=== PATIENT | male | born 1945 | race Caucasian/White ===

== ENCOUNTER 2018-08-16 09:03 | Inpatient (IN) | payer MEDICARE, MEDICAID ==
[~2018-08-16] VITALS: Ht 193 cm; Wt 86.2 kg
[2018-08-16] VITALS (7 sets, daily range): BP systolic 113–169; BP diastolic 61–97; BMI 23.1
--- NOTE | ~2018-08-16 | MORECARE ---
CASE MANAGEMENT DISCHARGE SUMMARY PATIENT: MAGDY RANGEL JR UNIT: [id number] ADM DATE: 08/16/18 AGE: 73 : 44 SEX: M ROOM/BED: D.2240 AUTHOR: JUJU DELACRUZ PHYSICIAN: REFERRING PHYSICIAN: OZZY LOPEZ MD DATE OF SERVICE: 08/18/18 Discharge Plan Patient Name: MAGDY RANGEL Facility: [facility]:[place] : 1945 Planned Disposition: Inpatient Rehab Facility Anticipated Discharge Date: Discharge Date: Expected LOS: Initial Reviewer: [email or web address] Initial Review Date: 08/18/2018 Generated: 08/18/18 3:39 pm Comments DCP- Discharge Planning Updated by [email or web address]: Fabi Ford on 08/18/18 1:[address] Patient Name: MAGDY RANGEL Admission Status: ER Accout number: [id number] Admission Date: 08-16-2018 : 1945 Admission Diagnosis: Attending: OZZY JAIN Current LOS: 2 Anticipated DC Date: Planned Disposition: Inpatient Rehab Facility Primary Insurance: MEDICARE A & B Discharge Planning Comments: CM met with patient to discuss discharge planning, his daughter is in the room. He is hurting too much to answer questions, daughter answers questions for him. He lives alone. States sometimes his nephew will stay with him at night. States he is independent with all ADL's. States he no longer drives, family takes him where he needs to go. Daughter states he will need rehab prior to going home, would like to speak to her brother before deciding where. I discussed the availability of inpatient rehab and SNF. States they live in [place], so may want him to go to [place]. I will meet with them again tomorrow to see where they would like me to send the referral. CM will continue to follow and assist with discharge planning/needs. Pilot Instructor: Fabi Ford DCPIA - Discharge Planning Initial Assessment Updated by [email or web address]: Fabi Ford on 08/18/18 2:34 pm * Is the patient Alert and Oriented? No * How many steps to enter\exit or inside your home? 0/0 * PCP Dr. James Lawson in [place] * [facility] in [place] * Preadmission Environment Home Alone * ADLs Partial Dependent * Partial ADLs (Assistance needed) Ambulation * Equipment Bedside Commode Shower Chair Walker Wheelchair * List name and contact numbers for known caregivers / representatives who currently or will assist patient after discharge: Eleonora Bass - DTR - [phone] Edy Rangel son - [phone] * Verbal permission to speak to the caregivers and representatives has been obtained from the patient. Yes * Community resources currently utilized None * Additional services required to return to the preadmission environment? Yes * Can the patient safely return to the preadmission environment? No * Has this patient been hospitalized within the prior 30 days at any hospital? No Patient Name: MAGDY RANGEL Page [id number] at 1439 All edits/amendments must be made on the electronic document DICTATION DATE: 08/18/181437 AGRICULTURAL EQUIPMENT SALES ENGINEER: DULCE 08/18/181437 RPT#: [id number] DC DATE: STATUS: ADM IN [facility] [address] [place] [address] END OF REPORT
--- NOTE | ~2018-08-16 | MORECARE ---
CASE MANAGEMENT DISCHARGE SUMMARY PATIENT: MAGDY RANGEL JR UNIT: [id number] ADM DATE: 08/16/18 AGE: 73 : 44 SEX: M ROOM/BED: D.2240 AUTHOR: JUJU DELACRUZ PHYSICIAN: REFERRING PHYSICIAN: OZZY LOPEZ MD DATE OF SERVICE: 08/21/18 Discharge Plan Patient Name: MAGDY RANGEL Facility: [facility]:[place] : 1945 Planned Disposition: Inpatient Rehab Facility Anticipated Discharge Date: 08/21/18 Discharge Date: 08/21/2018 Expected LOS: 5 Initial Reviewer: [email or web address] Initial Review Date: 08/18/2018 Generated: 08/21/18 8:51 pm Comments DCP- Discharge Planning Updated by [email or web address]: Fabi Browningashley on 08/19/18 8:[address] I met with the son today per his request. He would like his father to go to inpatient rehab at [facility] on discharge from acute care. A rehab screen has been ordered. CM will continue to follow and assist with discharge planning/needs. DCP- Discharge Planning Updated by [email or web address]: Fabi Ford on 08/18/18 1:[address] Patient Name: MAGDY RANGEL Admission Status: ER Accout number: [id number] Admission Date: 08-16-2018 : 1945 Admission Diagnosis: Attending: OZZY JAIN Current LOS: 2 Anticipated DC Date: Planned Disposition: Inpatient Rehab Facility Primary Insurance: MEDICARE A & B Discharge Planning Comments: CM met with patient to discuss discharge planning, his daughter is in the room. He is hurting too much to answer questions, daughter answers questions for him. He lives alone. States sometimes his nephew will stay with him at night. States he is independent with all ADL's. States he no longer drives, family takes him where he needs to go. Daughter states he will need rehab prior to going home, would like to speak to her brother before deciding where. I discussed the availability of inpatient rehab and SNF. States they live in [place], so may want him to go to [place]. I will meet with them again tomorrow to see where they would like me to send the referral. CM will continue to follow and assist with discharge planning/needs. Well Service Derrick Worker: Fabi Liliana DCPIA - Discharge Planning Initial Assessment Updated by [email or web address]: Fabi Browningashley on 08/18/18 2:34 pm * Is the patient Alert and Oriented? No * How many steps to enter\exit or inside your home? 0/0 * PCP Dr. James Lawson in [place] * [facility] in [place] * Preadmission Environment Home Alone * ADLs Partial Dependent * Partial ADLs (Assistance needed) Ambulation * Equipment Bedside Commode Shower Chair Walker Wheelchair * List name and contact numbers for known caregivers / representatives who currently or will assist patient after discharge: Eleonora Bass DTR - [phone] Edy Rangel [facility] [phone] * Verbal permission to speak to the caregivers and representatives has been obtained from the patient. Yes * Community resources currently utilized None * Additional services required to return to the preadmission environment? Yes * Can the patient safely return to the preadmission environment? No * Has this patient been hospitalized within the prior 30 days at any hospital? No Last DP export: 08/19/18 8:27 Patient Name: MAGDY RANGEL Page [id number] at 1950 All edits/amendments must be made on the electronic document DICTATION DATE: 08/21/181950 WIRE MACHINE OPERATOR: DULCE 08/21/181950 RPT#: [id number] DC DATE:08/21/18 STATUS: DIS IN [facility] [address] [place] [address] END OF REPORT
--- NOTE | ~2018-08-16 | MORECARE ---
CASE MANAGEMENT DISCHARGE SUMMARY PATIENT: MAGDY RANGEL JR UNIT: [id number] ADM DATE: 08/16/18 AGE: 73 : 44 SEX: M ROOM/BED: D.2240 AUTHOR: JUJU DELACRUZ PHYSICIAN: REFERRING PHYSICIAN: OZZY LOPEZ MD DATE OF SERVICE: 08/24/18 Discharge Plan Patient Name: MAGDY RANGEL Facility: [facility]:[place] : 1945 Planned Disposition: Inpatient Rehab Facility Anticipated Discharge Date: 08/21/18 Discharge Date: 08/21/2018 Expected LOS: 5 Initial Reviewer: [email or web address] Initial Review Date: 08/18/2018 Generated: 08/24/18 9:50 am Comments DCP- Discharge Planning Updated by [email or web address]: Clara Tolentino on 08/21/18 6:[address] LATE ENTRY 1240 CM MET WITH THE PATIENT'S FAMILY AT THE BEDSIDE TO DISCUSS HOSPICE. THEY WOULD LIKE AN EVAL AND ADMIT. THEY WOULD LIKE INPATIENT HOSPICE AT [facility] THEY ARE FAMILIAR WITH [facility]. THEY CANNNOT MANAGE HIS CARE AT HOME. TC TO [facility] [phone]. REC CB FROM IDA. FAXED FACE SHEET AND MD ORDER TO [phone] DIRECTED. IDA IS TO CONTACT AKASH AT [phone]. CM CB TO UNIT BY DR NICOLAS. HE HAS SPOKEN WITH THE FAMILY AND WANTS TO CHANGE PLAN TO [facility] AT [facility] THEN TRANSFER IN A WEEK TO [place]. TC BACK TO [facility] AND SPOKE W/ IDA. TO ADVISE OF CHANGE TC TO [facility], [facility] CONTRACTED [facility] PROVIDER. REC CB FROM [place]. REFERRAL GIVEN. NURSE VISITED ONSITE THIS AFTERNOON. PATIENT ADMITTED TO [facility]. DCP- Discharge Planning Updated by [email or web address]: Fabi Ford on 08/19/18 8:[address] I met with the son today per his request. He would like his father to go to inpatient rehab at [facility] on discharge from acute care. A rehab screen has been ordered. CM will continue to follow and assist with discharge planning/needs. DCP- Discharge Planning Updated by [email or web address]: Fabi Ford on 08/18/18 1:[address] Patient Name: MAGDY RANGEL Admission Status: ER Accout number: [id number] Admission Date: 08-16-2018 : 1945 Admission Diagnosis: Attending: OZZY JAIN Current LOS: 2 Anticipated DC Date: Planned Disposition: Inpatient Rehab Facility Primary Insurance: MEDICARE A & B Discharge Planning Comments: CM met with patient to discuss discharge planning, his daughter is in the room. He is hurting too much to answer questions, daughter answers questions for him. He lives alone. States sometimes his nephew will stay with him at night. States he is independent with all ADL's. States he no longer drives, family takes him where he needs to go. Daughter states he will need rehab prior to going home, would like to speak to her brother before deciding where. I discussed the availability of inpatient rehab and SNF. States they live in [place], so may want him to go to [place]. I will meet with them again tomorrow to see where they would like me to send the referral. CM will continue to follow and assist with discharge planning/needs. Health And Physical Education Teacher: Fabi Browningashley DCPIA - Discharge Planning Initial Assessment Updated by [email or web address]: Fabi Ford on 08/18/18 2:34 pm * Is the patient Alert and Oriented? No * How many steps to enter\exit or inside your home? 0/0 * PCP Dr. James Lawson in [place] * [facility] in [place] * Preadmission Environment Home Alone * ADLs Partial Dependent * Partial ADLs (Assistance needed) Ambulation * Equipment Bedside Commode Shower Chair Walker Wheelchair * List name and contact numbers for known caregivers / representatives who currently or will assist patient after discharge: Akash Bass - DTR - [phone] Edy Rangel son - [phone] * Verbal permission to speak to the caregivers and representatives has been obtained from the patient. Yes * Community resources currently utilized None * Additional services required to return to the preadmission environment? Yes * Can the patient safely return to the preadmission environment? No * Has this patient been hospitalized within the prior 30 days at any hospital? No Last DP export: 08/21/18 6:58 Patient Name: MAGDY RANGEL Page 97199 at 0850 All edits/amendments must be made on the electronic document DICTATION DATE: 08/24/18849 COMMUNITY AIDE: DULCE 08/24/18849 RPT#: [id number] DC DATE:08/21/18 STATUS: DIS IN [facility] [address] [place] [address] END OF REPORT
--- NOTE | ~2018-08-16 | MORECARE ---
CASE MANAGEMENT DISCHARGE SUMMARY PATIENT: MAGDY RANGEL JR UNIT: [id number] ADM DATE: 08/16/18 AGE: 73 : 44 SEX: M ROOM/BED: D.2240 AUTHOR: JUJU DELACRUZ PHYSICIAN: REFERRING PHYSICIAN: OZZY LOPEZ MD DATE OF SERVICE: 08/21/18 Discharge Plan Patient Name: MAGDY RANGEL Facility: [facility]:[place] : 1945 Planned Disposition: Inpatient Rehab Facility Anticipated Discharge Date: 08/21/18 Discharge Date: 08/21/2018 Expected LOS: 5 Initial Reviewer: [email or web address] Initial Review Date: 08/18/2018 Generated: 08/21/18 8:58 pm Comments DCP- Discharge Planning Updated by [email or web address]: Clara Tolentino on 08/21/18 6:[address] LATE ENTRY 1240 CM MET WITH THE PATIENT'S FAMILY AT THE BEDSIDE TO DISCUSS HOSPICE. THEY WOULD LIKE AN EVAL AND ADMIT. THEY WOULD LIKE INPATIENT HOSPICE AT [facility] THEY ARE FAMILIAR WITH [facility]. THEY CANNNOT MANAGE HIS CARE AT HOME. TC TO [facility] [phone]. REC CB FROM IDA. FAXED FACE SHEET AND MD ORDER TO [phone] DIRECTED. IDA IS TO CONTACT AKASH AT [phone]. CM CB TO UNIT BY DR NICOLAS. HE HAS SPOKEN WITH THE FAMILY AND WANTS TO CHANGE PLAN TO [facility] AT [facility] THEN TRANSFER IN A WEEK TO [place]. TC BACK TO [facility] AND SPOKE W/ IDA. TO ADVISE OF CHANGE TC TO [facility], [facility] CONTRACTED [facility] PROVIDER. REC CB FROM [place]. REFERRAL GIVEN. NURSE VISITED ONSITE THIS AFTERNOON. PATIENT ADMITTED TO [facility]. DCP- Discharge Planning Updated by [email or web address]: Fabi Ford on 08/19/18 8:[address] I met with the son today per his request. He would like his father to go to inpatient rehab at [facility] on discharge from acute care. A rehab screen has been ordered. CM will continue to follow and assist with discharge planning/needs. DCP- Discharge Planning Updated by [email or web address]: Fabi Ford on 08/18/18 1:[address] Patient Name: MAGDY RANGEL Admission Status: ER Accout number: [id number] Admission Date: 08-16-2018 : 1945 Admission Diagnosis: Attending: OZZY JAIN Current LOS: 2 Anticipated DC Date: Planned Disposition: Inpatient Rehab Facility Primary Insurance: MEDICARE A & B Discharge Planning Comments: CM met with patient to discuss discharge planning, his daughter is in the room. He is hurting too much to answer questions, daughter answers questions for him. He lives alone. States sometimes his nephew will stay with him at night. States he is independent with all ADL's. States he no longer drives, family takes him where he needs to go. Daughter states he will need rehab prior to going home, would like to speak to her brother before deciding where. I discussed the availability of inpatient rehab and SNF. States they live in [place], so may want him to go to [place]. I will meet with them again tomorrow to see where they would like me to send the referral. CM will continue to follow and assist with discharge planning/needs. Animal Care Specialist: Fabi Browningashley DCPIA - Discharge Planning Initial Assessment Updated by [email or web address]: Fabi Ford on 08/18/18 2:34 pm * Is the patient Alert and Oriented? No * How many steps to enter\exit or inside your home? 0/0 * PCP Dr. James Lawson in [place] * [facility] in [place] * Preadmission Environment Home Alone * ADLs Partial Dependent * Partial ADLs (Assistance needed) Ambulation * Equipment Bedside Commode Shower Chair Walker Wheelchair * List name and contact numbers for known caregivers / representatives who currently or will assist patient after discharge: Akash Bass - DTR - [phone] Edy Rangel - son - [phone] * Verbal permission to speak to the caregivers and representatives has been obtained from the patient. Yes * Community resources currently utilized None * Additional services required to return to the preadmission environment? Yes * Can the patient safely return to the preadmission environment? No * Has this patient been hospitalized within the prior 30 days at any hospital? No Last DP export: 08/21/18 6:51 Patient Name: MAGDY RANGEL Page 01856 at 1958 All edits/amendments must be made on the electronic document DICTATION DATE: 08/21/181956 CNC MACHINE SETTER: DULCE 08/21/181956 RPT#: [id number] DC DATE:08/21/18 [facility] [address] [place] [address] END OF REPORT
--- NOTE | ~2018-08-16 | OP ---
PATIENT NAME: MAGDY RANGEL JR MEDICAL RECORD: [id number] :[birth year] LOCATION:D[id number] ADMISSION DATE:08/16/18 SURGEON: JENSEN ADRIAN MD DATE OF OPERATION: 08/17/2018 PROCEDURES: 1. PTCA, LAD. 2. Left heart catheterization. 3. Selective coronary angiography. INDICATION: Chest pain compatible with angina, coronary artery disease, and previous cardiac stenting. PROCEDURE IN DETAIL: After informed consent was obtained and after a detailed description of the risks, benefits as well as alternative therapies, the patient elected to proceed with angiogram and angioplasty. The right radial area was prepped and draped in normal sterile fashion. Right radial artery was cannulated via modified Seldinger technique with placement of 6-Czech sheath. All catheters exchanged through this sheath. 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 SELECTIVE CORONARY ANGIOGRAPHY: 1. Left main is with no significant angiographic disease. 2. Left anterior descending has previously placed stents. There is 95% in-stent restenosis in the proximal vessel. 3. The left circumflex has mild irregularities, but no flow-limiting stenosis. 4. The right coronary has previously placed stents, these are widely patent with no significant restenosis. No disease elsewise throughout the RCA or its branches. PTCA of the LAD: The in-stent restenosis was addressed with high pressure PTCA with a 3.5 balloon taken to 21 atmospheres. Result was 0% residual stenosis. OVERALL IMPRESSION: Successful percutaneous transluminal coronary angioplasty for in-stent restenosis of the LAD going from 95% initial stenosis to 0% residual. TRANSINT:[id number] Voice Confirmation ID: [id number] DOCUMENT ID: [id number] JENSEN ADRIAN MD at 1228 CC: [id number] DICTATION DATE: 08/17/18 1623 DEMOLITION WORKER: 08/17/18 1848 ADM IN [facility] [id number] [place] [address]
--- NOTE | ~2018-08-16 | MORECARE ---
CASE MANAGEMENT DISCHARGE SUMMARY PATIENT: MAGDY RANGEL JR UNIT: [id number] ADM DATE: 08/16/18 AGE: 73 : 44 SEX: M ROOM/BED: D.2240 AUTHOR: JUJU DELACRUZ PHYSICIAN: REFERRING PHYSICIAN: OZZY LOPEZ MD DATE OF SERVICE: 08/19/18 Discharge Plan Patient Name: MAGDY RANGEL Facility: [facility]:[place] : 1945 Planned Disposition: Inpatient Rehab Facility Anticipated Discharge Date: Discharge Date: Expected LOS: Initial Reviewer: [email or web address] Initial Review Date: 08/18/2018 Generated: 08/19/18 10:27 am Comments DCP- Discharge Planning Updated by [email or web address]: Fabi Liliana on 08/19/18 8:[address] I met with the son today per his request. He would like his father to go to inpatient rehab at [facility] on discharge from acute care. A rehab screen has been ordered. CM will continue to follow and assist with discharge planning/needs. DCP- Discharge Planning Updated by [email or web address]: Fabi Browningashley on 08/18/18 1:[address] Patient Name: MAGDY RANGEL Admission Status: ER Accout number: [id number] Admission Date: 08-16-2018 : 1945 Admission Diagnosis: Attending: OZZY JAIN Current LOS: 2 Anticipated DC Date: Planned Disposition: Inpatient Rehab Facility Primary Insurance: MEDICARE A & B Discharge Planning Comments: CM met with patient to discuss discharge planning, his daughter is in the room. He is hurting too much to answer questions, daughter answers questions for him. He lives alone. States sometimes his nephew will stay with him at night. States he is independent with all ADL's. States he no longer drives, family takes him where he needs to go. Daughter states he will need rehab prior to going home, would like to speak to her brother before deciding where. I discussed the availability of inpatient rehab and SNF. States they live in [place], so may want him to go to [place]. I will meet with them again tomorrow to see where they would like me to send the referral. CM will continue to follow and assist with discharge planning/needs. Dry Press Operator: Fabi Liliana DCPIA - Discharge Planning Initial Assessment Updated by [email or web address]: Fabi Liliana on 08/18/18 2:34 pm * Is the patient Alert and Oriented? No * How many steps to enter\exit or inside your home? 0/0 * PCP Dr. James Lawson in [place] * [facility] in [place] * Preadmission Environment Home Alone * ADLs Partial Dependent * Partial ADLs (Assistance needed) Ambulation * Equipment Bedside Commode Shower Chair Walker Wheelchair * List name and contact numbers for known caregivers / representatives who currently or will assist patient after discharge: Eleonora Bass - DTR - [phone] Edy Rangel [facility] - [phone] * Verbal permission to speak to the caregivers and representatives has been obtained from the patient. Yes * Community resources currently utilized None * Additional services required to return to the preadmission environment? Yes * Can the patient safely return to the preadmission environment? No * Has this patient been hospitalized within the prior 30 days at any hospital? No Last DP export: 08/18/18 1:39 Patient Name: MAGDY RANGEL Page [id number] at 0927 All edits/amendments must be made on the electronic document DICTATION DATE: 08/19/18925 WEB DATABASE DEVELOPER: DULCE 08/19/18925 RPT#: [id number] DC DATE: STATUS: ADM IN [facility] [address] [place] [address] END OF REPORT
--- NOTE | ~2018-08-16 | HEMODYNAMI ---
PATIENT:MAGDY RANGEL JR MEDICAL RECORD: [id number] : 43 LOCATION:D [id number] ADMISSION DATE: 08/16/18 Generatedon:08/17/201816:24 Patient name: MAGDY RANGEL Patient #: [id number] SSN: : 1945 Date of study: 08/17/2018 Page: Of Hemodynamic Procedure Report Patient Data Patient Demographics Procedure consent was obtained First Name: MAGDY Gender: Male Last Name: JUAN CARLOS Suffix: Jr Cherry Initial: HARMEET : 1945 Patient #: [id number] Age: 73 year(s) Race: Unknown Additional ID: [id number] Contact details Address: [address] [place] [address] State: [place] City: [place] Zip code: [address] Admission Admission Data Admission Date: 08/16/2018 Admission Time: 10:48 Room #: D.2240 Procedure Procedure Types Cath Procedure Diagnostic Procedure LHC LHC w/Coronaries PCI Procedure PTCA PTCA Initial Procedure Description Procedure Date Procedure Date: 08/17/2018 Procedure Start Time: 16:08 Procedure End Time: 16:24 Procedure Staff Name Function Ton Rendon MD Performing Physician Milady Thurman RT Monitor Camille Vogel RN Nurse Alexey Nieves RT Scrub Jamar Gaytan MD Additional personnel Procedure Data Cath Procedure Fluoroscopy Diagnostic fluoroscopy Total fluoroscopy Time: 5.6 time: 5.6 min min Diagnostic fluoroscopy Total fluoroscopy dose: 601 dose: 601 mGy mGy Contrast Material Contrast Material Type Amount (ml) Isovue 300 59 Entry Location Entry Primary Successful Side Size Upsize Upsize Entry Closure Succes sful Closure Location (Fr) 1 (Fr) 2 (Fr) Remarks Device Remarks Radial Right 6 Fr Exoseal artery Short Estimated blood loss: 10 ml Diagnostic catheters Device Type Used For End Catheter Placement DIAGNOSTIC Raven 110cm 5 LV Angiography Fr catheter ([id number]) DIAGNOSTIC Raven 110cm 5 Right Coronary Fr catheter ([id number]) Angiography Procedure Complications No complications Procedure Medications Medication Administration Route Dosage 0.9% NaCl I.V. 100 ml/hr Oxygen etCO2 Nasal cannula 2 l/min Lidocaine 2% added to field 20 Heparin Flush Bag added to field 2 bags (1000units/500ml NS) Refer to Anesthesia Notes for Sedation Medications Heparin Bolus I.V. 4000 units Plavix P.O. 75 mg Hemodynamics Rest Heart Rate: 96 (bpm) Snapshots Pre Cath Intra NCS Post Cath Vital Signs Time Heart Resp SPO2 etCO2 NIBP (mmHg) Rhythm Pain Sedation Rate (ipm) (%) (mmHg) Status Level (bpm) 15:28:00 94 12 99 8.2 128/56(100) NSR 0 (11) 10(A) , No pain 15:32:33 87 16 97 16.5 130/70(105) NSR 0 (11) 5(A) , No pain 15:36:45 100 18 98 23.3 112/65(97) NSR 0 (11) 5(A) , No pain 15:40:51 90 17 99 22.6 87/57(75) NSR 0 (11) 5(A) , No pain 15:44:54 85 15 99 23 79/51(62) NSR 0 (11) 5(A) , No pain 15:48:56 93 16 98 22.6 74/49(60) NSR 0 (11) 5(A) , No pain 15:52:56 85 16 97 20.3 71/48(55) NSR 0 (11) 5(A) , No pain 15:56:55 83 17 96 23.7 67/46(57) NSR 0 (11) 5(A) , No pain 16:00:53 92 15 96 21.8 65/44(51) NSR 0 (11) 5(A) , No pain 16:04:51 82 18 96 29.8 66/46(52) NSR 0 (11) 5(A) , No pain 16:08:50 92 20 96 15.8 67/44(56) NSR 0 (11) 5(A) , No pain 16:12:50 81 14 98 22.6 58/41(52) NSR 0 (11) 5(A) , No pain 16:14:33 90 16 96 22.6 57/42(52) NSR 0 (11) 5(A) , No pain 16:18:10 81 15 98 26.3 76/47(62) NSR 0 (11) 5(A) , No pain 16:22:09 81 15 97 25.6 79/50(59) NSR 0 (11) 10(A) , No pain Medications Time Medication Route Dose Verified Delivered Reason Notes Effectiveness by by 15:28:17 0.9% NaCl I.V. 100 Ton Camille used for ml/hr Julieta Vogel seamless tube roller 15:28:25 Oxygen etCO2 2 Ton Camille used for Nasal l/min Julieta Vogel procedure cannula RN 15:28:30 Lidocaine 2% added 20ml Ton Ton for local to vial Julieta Rendon MD anesthetic field 15:28:35 Heparin Flush added 2 Ton Ton used for Bag to bags Julieta Rendon MD procedure (1000units/500ml field NS) 15:28:53 Refer to [facility] Anesthesia Notes Julieta Rendon MD for Sedation Medications 16:17:21 Heparin Bolus I.V. 4000 Ton Camille for verif ied units Julieta Vogel anticoagulation with Dr. SAM Rendon 16:22:50 Plavix P.O. 75 mg Ton Berryyla for Julieta Vogel antiplatelet RN therapy Procedure Log Time Note 15:10:14 Milady Counts RT(R) sent for patient. Start room use. 15:10:15 Time tracking: Regular hours (M-F 7:00 - 5:00) 15:10:19 Plan of Care:Hemodynamics will remain stable., Cardiac rhythm will remain stable., Comfort level will be maintained., Respiratory function will remain adequate., Patient/ family verbilizes understanding of procedure., Procedure tolerated without complication., Recovers from procedure without complications.. 15:21:09 Jamar Gaytan MD present and monitoring patient for TIVA. 15:21:34 Patient received from Med/Surg to CCL 1 Alert and oriented. Tansferred to table in Supine position. 15:21:35 Warm blankets applied, and felix hugger turned on for patient comfort. 15:21:36 Correct patient and procedure confirmed by team. 15:21:38 Signed procedure consent form obtained from patient. 15:21:39 ECG and BP/O2 sat monitors applied to patient. 15:21:41 Pre-procedure instructions explained to patient. 15:21:42 Pre-op teaching completed and patient verbalized understanding. 15:22:02 H&P Date Dictated: 08/16/2018 Within 30 days and on chart.. 15:26:54 Vital chart was started 15:27:12 Baseline sample Acquired. 15:28:17 0.9% NaCl 100 ml/hr I.V. was administered by Camille Vogel RN; used for procedure; 15:28:25 Oxygen 2 l/min etCO2 Nasal cannula was administered by Camille Vogel RN; used for procedure; 15:28:30 Lidocaine 2% 20ml vial added to field was administered by Ton Rendon MD; for local anesthetic; 15:28:35 Heparin Flush Bag (1000units/500ml NS) 2 bags added to field was administered by Ton Rendon MD; used for procedure; 15:28:53 Refer to Anesthesia Notes for Sedation Medications was administered by Ton Rendon MD; ; 15:42:33 Rhythm: sinus rhythm 15:42:34 Full Disclosure recording started 15:42:38 Family in patients room. 15:42:39 Patient NPO since Midnight. 15:42:46 Is the patient allergic to Iodine/contrast media? No. 15:42:50 Is patient on blood thinner?Yes 15:42:52 ACC The patient was administered the following blood thiners within the last 24 hours: ACCPlavix 15:42:55 Patient diabetic? Yes. 15:44:42 If diabetic: On Metformin? No 15:44:58 SEE ANESTHESIA NOTES FOR PRE ASSESSMENT 15:45:11 Pre procedure: right dorsailis pedis pulse Inaccessible 15:45:14 Pre procedure: left dorsailis pedis pulse Inaccessible 15:45:50 BOTH LOWER LEGS AND FEET HEAVILY BANDAGED DUE TO NONE HEALING ULCERS. 15:45:57 Patient pain scale 10/10 BACK. 15:46:06 IV patent on arrival in left wrist with 0.9% NaCl at [facility]. 15:46:08 Lab results completed and on chart. 15:46:11 Right Radial & Right Groin area was prepped with chlora-prep and draped in sterile fashion 15:46:12 Alarms reviewed by R. N. 15:46:13 Sharps counted by scrub and verified by R.N. 15:48:02 Use device set Radial Dx or PCI 15:48:03 ACIST Syringe (21799) opened to sterile field. 15:48:03 Medline Cath Pack ([id number]) opened to sterile field. 15:48:04 Bag Decanter (2002S) opened to sterile field. 15:48:04 DIAGNOSTIC WIRE .035 260cm J wire (580986) opened to sterile field. 15:48:05 ACIST Hand Control (62368) opened to sterile field. 15:48:05 ACIST Manifold (91087) opened to sterile field. 15:48:06 Tegaderm 4 x 4 (1626W) opened to sterile field. 15:48:06 MBrace Wrist Support ([id number]) opened to sterile field. 15:48:07 SHEATH 6FR Slender (26-3327) opened to sterile field. 15:48:43 Zero performed for pressure channel P1 15:49:03 Zero performed for pressure channel P1 16:05:55 Final Timeout: patient, procedure, and site verified with staff and physician. All members of the team are in agreement. 16:06:00 Right Radial site verified by team. 16:06:02 Physical assessment completed. ASA score P 2 - A patient with mild systemic disease as per Ton Rendon MD. 16:06:10 Sedation plan: TIVA Medication:Propofol 16:08:39 Procedure started. 16:08:43 Local anesthetic to right femoral artery with Lidocaine 2% by Ton Rendon MD.INITIAL ACCESS ONLY 16:08:57 A 6 Fr Short sheath was inserted into the Right Radial artery 16:09:19 A DIAGNOSTIC Raven 110cm 5 Fr catheter (514863) was advanced over the wire and used for LV Angiography. UNABLE TO CROSS VALVE 16:11:27 Attempted to notify family per Milady Thurman RT(R). No family available. 16:12:42 A DIAGNOSTIC Raven 110cm 5 Fr catheter ([id number]) was advanced over the wire and used for Right Coronary Angiography. 16:12:54 Catheter removed. 16:13:18 GUIDE 6FR XB 3.5 catheter ([id number]) opened to sterile field. 16:13:34 6 Fr XB 3.5 guide catheter was inserted over the wire 16:14:51 LCA angiography performed. 16:16:53 CHOICE PT ES wire advanced. 16:17:21 Heparin Bolus 4000 units I.V. was administered by Camille Vogel RN; for anticoagulation; verified with Dr. Rendon 16:18:01 Inflate balloon Inflation number: 1 A EUPHORA 3.5 x 15 Balloon ([id number]) was prepped and advanced across the Prox LAD, then inflated to 21 TRAM for 0:09 (min:sec). 16:18:34 Inflation number: 2 The EUPHORA 3.5 x 15 Balloon ([id number]) was reinflated across the Prox LAD, to 21 TRAM for 0:25 (min:sec). 16:18:40 Inflation number: 3 The EUPHORA 3.5 x 15 Balloon ([id number]) was reinflated across the Prox LAD, to 21 TRAM for 0:04 (min:sec). 16:18:56 Inflation number: 4 The EUPHORA 3.5 x 15 Balloon ([id number]) was reinflated across the Prox LAD, to 21 TRAM for 0:04 (min:sec). 16:19:[address] [facility] PCI 16:19:06 INFLATOR Merit BasixCompak ([id number]) opened to sterile field. 16:19:09 CHOICE PT Extra Support 182cm wire ([id number]) opened to sterile field. 16:19:21 Balloon removed over the wire. 16:19:22 Wire removed. 16:19:22 Guide catheter removed. 16:19:29 Sheath removed intact; hemostasis achieved with Exoseal to the Right Radial artery. 16:19:57 Procedure ended.(Physican Out) 16:20:08 Fluoroscopy time 05.60 minutes. 16:20:16 Fluoroscopy dose: 601 mGy 16:20:16 Flurop Dose total: 601 16:20:27 Contrast amount:Isovue 300 59ml. 16:20:29 Sharps counted by scrub and verified by R.N. 16:20:31 TR band inflated with 12cc of air. 16:20:32 Insertion/operative site no bleeding no hematoma. 16:20:39 Post right radial artery:stable, clean and dry 16:20:41 Post Procedure Pulses reassessed and unchanged 16:20:44 Post-procedure physical assessment completed. ASA score P 2 - A patient with mild systemic disease as per Ton Rendon MD. 16:20:53 Post procedure rhythm: unchanged. 16:21:00 Estimated blood loss: 10 ml 16:21:01 Post procedure instruction explained to patient.Patient verbalizes understanding. 16:21:01 Patient needs reinforcement of post procedure teaching. 16:21:06 Procedure Complication : No complications 16:21:09 See physician's report for complete and final results. 16:21:26 Procedure type changed to Cath procedure, Diagnostic procedure, LHC, LHC w/Coronaries, PCI procedure, PTCA, PTCA Initial 16:22:00 TR BAND Standard ([id number]) opened to sterile field. 16:22:28 Procedure and supply charges have been captured, reviewed, submitted and are correct. 16:22:50 Plavix 75 mg P.O. was administered by Camille Vogel RN; for antiplatelet therapy; 16:24:09 Report given to Pre/Post Procedure Room. 16:24:28 Patient transfered to Pre/Post Procedure Room with Bed. 16:24:32 Procedure ended. 16:24:32 Full Disclosure recording stopped 16:24:35 Vital chart was stopped 16:24:37 End room use (Document Last) Intervention Summary Intervention Notes Time ActionType Lesion and Equipment Action# Pressure Duration Attributes Used 16:18:01 Inflate Prox LAD EUPHORA 1 21 00:09 balloon 3.5 x 15 Balloon ([id number]) 16:18:34 Reinflate Prox LAD EUPHORA 2 21 00:25 balloon 3.5 x 15 Balloon ([id number]) 16:18:40 Reinflate Prox LAD EUPHORA 3 21 00:04 balloon 3.5 x 15 Balloon ([id number]) 16:18:56 Reinflate Prox LAD EUPHORA 4 21 00:04 balloon 3.5 x 15 Balloon ([id number]) Device Usage Item Name Manufacture Quantity Catalog Number Hospital Part Current Minim al Lot# / Charge Number Stock Stock Serial# Code ACIST Acist 1 14081 504018 263343 671020 20 DigitalTangible (83841) Uzabase Inc Medline Medline 1 [id number] 05823 236563 5 Cath Pack ([id number]) Bag Microtek 1 057273 32959 775292 5 DecVivaty Medical Inc. () DIAGNOSTIC [facility] 1 690875 349521 285742 287768 30 WIRE .035 260cm J wire (831250) ACIST Hand Acist 1 84037 242377 685510 607191 5 Control Medical (60532) Systems Inc ACIST Acist 1 83492 074995 444292 595966 5 Manifold Medical (15533) Systems Inc Tegaderm 4 3M 1 1626W 934590 028590 192718 5 x 4 (1626W) MBrace Advanced 1 140-0250-00 298145 33393 548633 5 Wrist Vascular Support Dynamics ([id number]) SHEATH 6FR Terumo 1 [id number] 911351 344157 370767 5 Slender (80-1060) DIAGNOSTIC Terumo 1 40-9283 157387 102648 033564 5 Raven 110cm 5 Fr catheter (253241) GUIDE 6FR Cardinal 1 [id number] 006242 202326 940721 2 XB 3.5 Health catheter (15669821) EUPHORA 3.5 Medtronic 1 [id number] 089454 428250 372424 5 [id number] x 15 Balloon ([id number]) INFLATOR Merit 1 TU7941 825436 945040 194496 15 Merit Medical BasixCompak (KS2397) CHOICE PT [place] 1 [id number] 150395 528104 602402 5 Extra Scientific Support 182cm wire ([id number]) TR BAND Terumo 1 [id number] 291801 752970 335039 40 Standard ([id number]) Signature Audit [place] Stage Time Signature Unsigned Intra-Procedure 08/17/2018 Milady 4:24:47 PM Counts RT(R) Signatures Monitor : Milady Signature : Counts RT Date : Time : [facility] [address] [facility] [place] [address]
[~2018-08-16 09:03] MED LIST: ALTACE10 MG PO; BENICAR HCT 40-1 TA1 PO; DIABETA2.5 MG PO; ECOTRIN81 MG PO; ENDOCET 10-3251 TAB PO; FLOMAX0.4 MG PO; K-TAB10 MEQ PO; LASIX40 MG PO; NITROSTAT0.4 MG SL; NORVASC5 MG PO; PLAVIX75 MG PO; PROTONIX40 MG PO; RANEXA500 MG PO; ZOCOR40 MG PO
[2018-08-16 09:56] LABS: BASOPHILS 0.1 % (0-2); EOSINOPHILS 0.5 % (0-7); HEMATOCRIT 42.9 % (42.0-54.0); HEMOGLOBIN 13.9 g/dL (13.5-17.5); IMMATURE GRANULOCYTES 1.3 % (0-5); LYMPHOCYTES 8.5 % (15-50); MCH 32.3 pg (26.0-34.0); MCHC 32.4 g/dL (31.0-37.0); MCV 99.5 fL (80.0-100.0); MEAN PLATELET VOLUME 10.3 fL (7.4-10.4); MONOCYTES 9.2 % (2-11); NEUTROPHILS 80.4 % (40-80); RBC 4.31 10x6/uL (4.20-6.10); RDW 13.6 % (11.5-14.5); WBC 11.1 10x3/uL (4.8-10.8)
[2018-08-16 10:00] LABS: PLATELET COUNT 143 10x3/uL (130-400)
[2018-08-16 10:06] LABS: APTT 28.4 SECONDS (22.8-39.4); INR 1.08 (0.85-1.17); PROTIME 13.5 SECONDS (11.6-15.0)
[2018-08-16 10:14] LABS: ALBUMIN 3.4 g/dL (3.4-5.0); ALKALINE PHOSPHATASE 112 U/L (46-116); ALT (SGPT) 36 U/L (10-68); BILIRUBIN - TOTAL 0.44 mg/dL (0.2-1.3); CALC OSMOLALITY 280 mosm/kg (275-300); CALCIUM 8.7 mg/dL (8.5-10.1); CARBON DIOXIDE 29.2 mmol/L (21.0-32.0); CHLORIDE - SERUM 103 mmol/L (98-107); CREATININE - SERUM 0.8 mg/dL (0.6-1.3); GLUCOSE 84 mg/dL (74-106); POTASSIUM - SERUM 4.1 mmol/L (3.5-5.1); PROTEIN - SERUM 6.8 g/dL (6.4-8.2); SODIUM 141 mmol/L (136-145); UREA NITROGEN 16 mg/dL (7-18); eGFR NON AFRICAN AMERICAN > 90 mL/min (90-120)
[2018-08-16 10:25] LABS: AMYLASE - SERUM 27 U/L (25-115); CKMB 3.4 U/L (0.0-3.6); CREATINE KINASE 59 UL (21-232); LIPASE 66 U/L (73-393); MAGNESIUM - SERUM 1.9 mg/dL (1.8-2.4); TROPONIN-I 0.036 ng/mL (0.000-0.060)
[2018-08-16 12:49] LABS: ERYTHROCYTE SEDIMENTATION RATE 4 mm/hr (0-20)
[2018-08-16] MEDS ORDERED: L-ARGININE500 MG PO (14:23)
[2018-08-16] MEDS ORDERED: FLUTICASONE PRO16 GM NASAL (14:25)
[2018-08-16] MEDS ORDERED: VISTARIL25 MG PO (14:28)
[2018-08-16] MEDS ORDERED: NEURONTIN 300300 MG PO (14:30)
[2018-08-16] MEDS ORDERED: DIPYRIDAMOLE75 MG PO (14:32)
[2018-08-16] MEDS ORDERED: COLACE100 MG PO (14:33)
[2018-08-16] MEDS ORDERED: IBUPROFEN800 MG PO (14:34)
[2018-08-16 17:31] LABS: BASOPHILS 0.1 % (0-2); EOSINOPHILS 1.6 % (0-7); HEMATOCRIT 42.4 % (42.0-54.0); HEMOGLOBIN 13.7 g/dL (13.5-17.5); IMMATURE GRANULOCYTES 1.8 % (0-5); LYMPHOCYTES 15.3 % (15-50); MCH 32.3 pg (26.0-34.0); MCHC 32.3 g/dL (31.0-37.0); MEAN PLATELET VOLUME 10.7 fL (7.4-10.4); MONOCYTES 8.4 % (2-11); NEUTROPHILS 72.8 % (40-80); RBC 4.24 10x6/uL (4.20-6.10); RDW 13.7 % (11.5-14.5)
[2018-08-16 17:36] LABS: PLATELET COUNT 109 10x3/uL (130-400); WBC 7.7 10x3/uL (4.8-10.8)
[2018-08-16 17:55] LABS: CALC OSMOLALITY 285 mosm/kg (275-300); CALCIUM 8.4 mg/dL (8.5-10.1); CARBON DIOXIDE 28.8 mmol/L (21.0-32.0); CHLORIDE - SERUM 105 mmol/L (98-107); CREATINE KINASE 47 UL (21-232); CREATININE - SERUM 0.8 mg/dL (0.6-1.3); GLUCOSE 98 mg/dL (74-106); POTASSIUM - SERUM 3.8 mmol/L (3.5-5.1); SODIUM 143 mmol/L (136-145); UREA NITROGEN 15 mg/dL (7-18); eGFR NON AFRICAN AMERICAN > 90 mL/min (90-120)
[2018-08-16 22:21] LABS: CKMB 2.3 U/L (0.0-3.6); CREATINE KINASE 47 UL (21-232)
[2018-08-17 04:34] LABS: BASOPHILS 0.1 % (0-2); EOSINOPHILS 1.3 % (0-7); HEMATOCRIT 40.6 % (42.0-54.0); HEMOGLOBIN 13.3 g/dL (13.5-17.5); IMMATURE GRANULOCYTES 1.9 % (0-5); LYMPHOCYTES 12.2 % (15-50); MCH 32.6 pg (26.0-34.0); MCHC 32.8 g/dL (31.0-37.0); MCV 99.5 fL (80.0-100.0); MEAN PLATELET VOLUME 10.6 fL (7.4-10.4); MONOCYTES 10.3 % (2-11); NEUTROPHILS 74.2 % (40-80); PLATELET COUNT 119 10x3/uL (130-400); RBC 4.08 10x6/uL (4.20-6.10); RDW 13.8 % (11.5-14.5); WBC 7.5 10x3/uL (4.8-10.8)
[2018-08-17 05:01] VITALS: BP 138/66
[2018-08-17 05:10] LABS: ALBUMIN 2.7 g/dL (3.4-5.0); ALKALINE PHOSPHATASE 95 U/L (46-116); ALT (SGPT) 31 U/L (10-68); BILIRUBIN - TOTAL 0.57 mg/dL (0.2-1.3); CALC OSMOLALITY 282 mosm/kg (275-300); CALCIUM 7.9 mg/dL (8.5-10.1); CARBON DIOXIDE 28.5 mmol/L (21.0-32.0); CHLORIDE - SERUM 104 mmol/L (98-107); CKMB 1.6 U/L (0.0-3.6); CREATINE KINASE 52 UL (21-232); CREATININE - SERUM 0.9 mg/dL (0.6-1.3); GLUCOSE 97 mg/dL (74-106); POTASSIUM - SERUM 3.3 mmol/L (3.5-5.1); PROTEIN - SERUM 5.8 g/dL (6.4-8.2); SODIUM 142 mmol/L (136-145); TROPONIN-I 0.048 ng/mL (0.000-0.060); UREA NITROGEN 13 mg/dL (7-18); eGFR NON AFRICAN AMERICAN 88 mL/min (90-120)
[2018-08-17 09:21] VITALS: BP 123/57
[2018-08-17 10:02] VITALS: BP 112/49
[2018-08-17 12:03] VITALS: BP 106/74
[2018-08-17 14:00] VITALS: Ht 193 cm; Wt 86.2 kg
[2018-08-17 21:01] VITALS: BP 130/88
[2018-08-18 05:58] VITALS: BP 112/60
[2018-08-18 06:21] LABS: BASOPHILS 0.2 % (0-2); EOSINOPHILS 1.2 % (0-7); HEMATOCRIT 39.8 % (42.0-54.0); HEMOGLOBIN 12.8 g/dL (13.5-17.5); IMMATURE GRANULOCYTES 1.9 % (0-5); MCH 31.8 pg (26.0-34.0); MCHC 32.2 g/dL (31.0-37.0); MCV 98.8 fL (80.0-100.0); MEAN PLATELET VOLUME 10.3 fL (7.4-10.4); MONOCYTES 12.5 % (2-11); NEUTROPHILS 73.2 % (40-80); PLATELET COUNT 107 10x3/uL (130-400); RBC 4.03 10x6/uL (4.20-6.10); RDW 14.1 % (11.5-14.5)
[2018-08-18 06:33] LABS: ALBUMIN 2.4 g/dL (3.4-5.0); ALKALINE PHOSPHATASE 89 U/L (46-116); ALT (SGPT) 24 U/L (10-68); BILIRUBIN - TOTAL 0.79 mg/dL (0.2-1.3); CALC OSMOLALITY 273 mosm/kg (275-300); CARBON DIOXIDE 26.6 mmol/L (21.0-32.0); CHLORIDE - SERUM 102 mmol/L (98-107); GLUCOSE 84 mg/dL (74-106); POTASSIUM - SERUM 3.4 mmol/L (3.5-5.1); PROTEIN - SERUM 5.6 g/dL (6.4-8.2); SODIUM 138 mmol/L (136-145); UREA NITROGEN 10 mg/dL (7-18)
[2018-08-18 06:34] LABS: CREATININE - SERUM 0.6 mg/dL (0.6-1.3); eGFR NON AFRICAN AMERICAN > 90 mL/min (90-120)
[2018-08-18 08:48] VITALS: BP 154/54
[2018-08-18 12:45] VITALS: BP 94/54
[2018-08-18 21:25] VITALS: BP 109/64
[2018-08-18 23:34] LABS: APPEARANCE CLEAR (CLEAR); BILIRUBIN NEGATIVE (NEGATIVE); COLOR YELLOW (YELLOW); GLUCOSE NEGATIVE (NEGATIVE); KETONE SMALL mg/dL (NEGATIVE); NITRITE NEGATIVE (NEGATIVE); PROTEIN NEGATIVE (NEGATIVE); SPECIFIC GRAVITY 1.015 (1.005-1.020); UROBILINOGEN NORMAL (NORMAL)
[2018-08-19 04:23] VITALS: BP 92/49
[2018-08-19 06:07] LABS: BASOPHILS 0.2 % (0-2); EOSINOPHILS 1.4 % (0-7); HEMATOCRIT 39.2 % (42.0-54.0); HEMOGLOBIN 13.2 g/dL (13.5-17.5); IMMATURE GRANULOCYTES 2.1 % (0-5); LYMPHOCYTES 9.3 % (15-50); MCH 32.5 pg (26.0-34.0); MCHC 33.7 g/dL (31.0-37.0); MEAN PLATELET VOLUME 10.1 fL (7.4-10.4); MONOCYTES 12.8 % (2-11); NEUTROPHILS 74.2 % (40-80); PLATELET COUNT 121 10x3/uL (130-400); RBC 4.06 10x6/uL (4.20-6.10); RDW 13.7 % (11.5-14.5); WBC 9.5 10x3/uL (4.8-10.8)
[2018-08-19 06:15] LABS: MCV 96.6 fL (80.0-100.0)
[2018-08-19 06:36] LABS: ALBUMIN 2.2 g/dL (3.4-5.0); ALKALINE PHOSPHATASE 86 U/L (46-116); ALT (SGPT) 27 U/L (10-68); BILIRUBIN - TOTAL 0.69 mg/dL (0.2-1.3); CALC OSMOLALITY 267 mosm/kg (275-300); CALCIUM 8.8 mg/dL (8.5-10.1); CARBON DIOXIDE 26.1 mmol/L (21.0-32.0); CHLORIDE - SERUM 96 mmol/L (98-107); CREATININE - SERUM 0.7 mg/dL (0.6-1.3); GLUCOSE 76 mg/dL (74-106); POTASSIUM - SERUM 3.7 mmol/L (3.5-5.1); PROTEIN - SERUM 5.8 g/dL (6.4-8.2); SODIUM 135 mmol/L (136-145); UREA NITROGEN 10 mg/dL (7-18); eGFR NON AFRICAN AMERICAN > 90 mL/min (90-120)
[2018-08-19 11:14] VITALS: BP 103/67
[2018-08-19 19:02] VITALS: BP 97/54
[2018-08-19 21:19] VITALS: BP 96/52
[2018-08-20 05:07] VITALS: BP 120/71
[2018-08-20 06:49] LABS: BASOPHILS 0 % (0-2); EOSINOPHILS 0.1 % (0-7); HEMATOCRIT 39.7 % (42.0-54.0); HEMOGLOBIN 13.4 g/dL (13.5-17.5); IMMATURE GRANULOCYTES 0.7 % (0-5); LYMPHOCYTES 4.4 % (15-50); MCH 32.1 pg (26.0-34.0); MCHC 33.8 g/dL (31.0-37.0); MEAN PLATELET VOLUME 10.4 fL (7.4-10.4); MONOCYTES 7.9 % (2-11); NEUTROPHILS 86.9 % (40-80); PLATELET COUNT 127 10x3/uL (130-400); RBC 4.18 10x6/uL (4.20-6.10); RDW 13.3 % (11.5-14.5); WBC 8.1 10x3/uL (4.8-10.8)
[2018-08-20 07:06] LABS: ALBUMIN 2.4 g/dL (3.4-5.0); ALKALINE PHOSPHATASE 100 U/L (46-116); ALT (SGPT) 31 U/L (10-68); BILIRUBIN - TOTAL 0.41 mg/dL (0.2-1.3); CALCIUM 8.5 mg/dL (8.5-10.1); CARBON DIOXIDE 26.5 mmol/L (21.0-32.0); CHLORIDE - SERUM 97 mmol/L (98-107); CREATININE - SERUM 0.6 mg/dL (0.6-1.3); PROTEIN - SERUM 5.5 g/dL (6.4-8.2); SODIUM 137 mmol/L (136-145); eGFR NON AFRICAN AMERICAN > 90 mL/min (90-120)
[2018-08-20 07:07] LABS: CALC OSMOLALITY 278 mosm/kg (275-300); GLUCOSE 161 mg/dL (74-106); POTASSIUM - SERUM 4.3 mmol/L (3.5-5.1); UREA NITROGEN 18 mg/dL (7-18)
[2018-08-20 08:48] VITALS: BP 141/81
[2018-08-20 16:43] VITALS: BP 101/59
[2018-08-20 21:15] VITALS: BP 113/61
[2018-08-21 01:19] VITALS: BP 163/92
[2018-08-21 05:53] LABS: BASOPHILS 0.1 % (0-2); EOSINOPHILS 0.6 % (0-7); HEMATOCRIT 42.7 % (42.0-54.0); HEMOGLOBIN 14.3 g/dL (13.5-17.5); IMMATURE GRANULOCYTES 0.8 % (0-5); LYMPHOCYTES 4.4 % (15-50); MCH 32.1 pg (26.0-34.0); MCHC 33.5 g/dL (31.0-37.0); MEAN PLATELET VOLUME 10.3 fL (7.4-10.4); MONOCYTES 11.3 % (2-11); NEUTROPHILS 82.8 % (40-80); RBC 4.45 10x6/uL (4.20-6.10); RDW 13.3 % (11.5-14.5)
[2018-08-21 05:57] LABS: PLATELET COUNT 162 10x3/uL (130-400); WBC 12.4 10x3/uL (4.8-10.8)
[2018-08-21 06:17] LABS: ALBUMIN 2.5 g/dL (3.4-5.0); ANION GAP 20.4 mmol/L (8-16); BILIRUBIN - TOTAL 0.54 mg/dL (0.2-1.3); CALCIUM 9.2 mg/dL (8.5-10.1); CARBON DIOXIDE 22.9 mmol/L (21.0-32.0); PROTEIN - SERUM 6.5 g/dL (6.4-8.2)
[2018-08-21 06:20] LABS: CREATININE - SERUM 1.1 mg/dL (0.6-1.3); POTASSIUM - SERUM 3.3 mmol/L (3.5-5.1)
[2018-08-21 10:23] VITALS: BP 154/81
[2018-08-21 14:08] VITALS: BP 114/86
== END 2018-08-21 16:37 | disposition hospice, inpatient (51) | DRG 515 ==
LOC: D.ER 09:03 → D.MS 10:48 → D.EDHOLD 10:48 → D.MS 13:31
PROVIDERS: Family Medicine; Internal Medicine Interventional Cardiology; Internal Medicine Nephrology
PROC: 4A023N7 Measurement of Cardiac Sampling and Pressure, Left Heart, Percutaneous Approach (ICD-10-PCS; 2018-08-17)
PROC: B211YZZ Fluoroscopy of Multiple Coronary Arteries using Other Contrast (ICD-10-PCS; 2018-08-17)
PROC: 02703ZZ Dilation of Coronary Artery, One Artery, Percutaneous Approach (ICD-10-PCS; principal; 2018-08-17 15:10)
PROC: 0QS03ZZ Reposition Lumbar Vertebra, Percutaneous Approach (ICD-10-PCS; 2018-08-19)
PROC: 0QU03JZ Supplement Lumbar Vertebra with Synthetic Substitute, Percutaneous Approach (ICD-10-PCS; 2018-08-19)
PROC: 0PS43ZZ Reposition Thoracic Vertebra, Percutaneous Approach (ICD-10-PCS; 2018-08-19)
PROC: 0PU43JZ Supplement Thoracic Vertebra with Synthetic Substitute, Percutaneous Approach (ICD-10-PCS; 2018-08-19)
DX: S22.079A Unspecified fracture of T9-T10 vertebra, initial encounter for closed fracture (principal); J18.9 Pneumonia, unspecified organism; T82.855A Stenosis of coronary artery stent, initial encounter; S32.039A Unspecified fracture of third lumbar vertebra, initial encounter for closed fracture; L97.921 Non-pressure chronic ulcer of unspecified part of left lower leg limited to breakdown of skin; L97.911 Non-pressure chronic ulcer of unspecified part of right lower leg limited to breakdown of skin; I25.10 Atherosclerotic heart disease of native coronary artery without angina pectoris; I10 Essential (primary) hypertension; E11.9 Type 2 diabetes mellitus without complications; I87.8 Other specified disorders of veins

== ENCOUNTER 2018-08-21 16:40 | Inpatient (IN) | payer OTHER ==
[~2018-08-21] VITALS: Ht 193 cm; Wt 81.8 kg
--- NOTE | ~2018-08-21 | MORECARE ---
CASE MANAGEMENT DISCHARGE SUMMARY PATIENT: MAGDY RANGEL JR UNIT: [id number] ADM DATE: 08/21/18 AGE: 73 : 44 SEX: M ROOM/BED: D.2240 AUTHOR: JUJU DELACRUZ PHYSICIAN: REFERRING PHYSICIAN: GREGORY PAINTING MD DATE OF SERVICE: 08/24/18 Discharge Plan Patient Name: MAGDY RANGEL Facility: [facility]:[place] : 1945 Planned Disposition: Anticipated Discharge Date: Discharge Date: Expected LOS: Initial Reviewer: [email or web address] Initial Review Date: 08/24/2018 Generated: 08/24/18 9:53 am Patient Name: MAGDY RANGEL Page [id number] at 0853 All edits/amendments must be made on the electronic document DICTATION DATE: 08/24/18851 INSOLE TACK PULLER HAND: DULCE 08/24/1852 RPT#: [id number] DC DATE: STATUS: ADM IN [facility] [address] [place] [address] END OF REPORT
--- NOTE | ~2018-08-21 | MORECARE ---
CASE MANAGEMENT DISCHARGE SUMMARY PATIENT: MAGDY RANGEL JR UNIT: [id number] ADM DATE: 08/21/18 AGE: 73 : 44 SEX: M ROOM/BED: D.2240 AUTHOR: JUJU DELACRUZ PHYSICIAN: REFERRING PHYSICIAN: GREGORY PAINTING MD DATE OF SERVICE: 08/25/18 Discharge Plan Patient Name: MAGDY RANGEL Facility: [facility]:[place] : 1945 Planned Disposition: Anticipated Discharge Date: Discharge Date: 08/25/2018 Expected LOS: 0 Initial Reviewer: [email or web address] Initial Review Date: 08/24/2018 Generated: 08/25/18 5:40 pm Last DP export: 08/24/18 7:53 Patient Name: MAGDY RANGEL Page 95521 at 1640 All edits/amendments must be made on the electronic document DICTATION DATE: 08/25/18 [facility] PATTERN GRADER CUTTER: DULCE 08/25/18 [facility] RPT#: [id number] DC DATE:08/25/18 STATUS: DIS IN [facility] [address] [place] [address] END OF REPORT
[~2018-08-21 16:40] MED LIST changes: +COLACE100 MG PO; +DIPYRIDAMOLE75 MG PO; +FLUTICASONE PRO16 GM NASAL; +IBUPROFEN800 MG PO; +L-ARGININE500 MG PO; +NEURONTIN 300300 MG PO; +VISTARIL25 MG PO
[2018-08-21 17:28] VITALS: BP 122/78
[2018-08-21 20:51] VITALS: BP 112/88
[2018-08-22 03:40] VITALS: BP 112/88; BMI 21.9
[2018-08-22 08:33] VITALS: BP 137/83
[2018-08-22 13:07] VITALS: BP 142/95
[2018-08-22 14:12] VITALS: Ht 193 cm; Wt 81.8 kg
[2018-08-22 16:48] VITALS: BP 144/87
[2018-08-22 20:55] VITALS: BP 119/76
[2018-08-23 08:47] VITALS: BP 100/60
[2018-08-23 12:00] VITALS: BP 113/56
[2018-08-23 16:00] VITALS: BP 102/51
[2018-08-24 08:37] VITALS: BP 98/62
[2018-08-24 20:00] VITALS: BP 76/38
[2018-08-25 08:37] VITALS: BP 62/31
== END 2018-08-25 13:31 | DRG 951 ==
LOC: D.MS 16:40
DX: Z51.5 Encounter for palliative care (principal)